=== PATIENT | female | born 1990 | race Hispanic/Latino ===

== ENCOUNTER 2019-03-23 11:46 | Emergency (ER) | payer BC, OTHER ==
[2019-03-23] MEDS ORDERED: ACETAMINOPHEN EXTRA STRENGTH 500 MG TABLET ONE (12:11)
[2019-03-23] MEDS ORDERED: CLINDAMYCIN HCL 150 MG CAP ONE (12:12)
== END 2019-03-23 13:11 | disposition home or self-care (01) ==
LOC: EDH 11:46
DX: L02.413 Cutaneous abscess of right upper limb (principal); L03.113 Cellulitis of right upper limb; Z72.0 Tobacco use
CPT/HCPCS: 10060

== ENCOUNTER 2024-02-17 19:43 | Emergency (ER) | payer OTHER ==
[~2024-02-17] VITALS: Ht 165.1 cm; Wt 108.9 kg
[2024-02-17] MEDS: KETOROLAC 15MG/ML VIAL (15MG/ML) IV STA (20:57)
[2024-02-17] MEDS: MORPHINE 2 MG SYG IVP STA (20:57)
[2024-02-17] MEDS: ONDANSETRON 4MG INJ IVP STA (20:57)
[2024-02-17] MEDS: 0.9%NACL 1000ML 1,000 ML IV STA (20:57)
[2024-02-17 20:58] VITALS: BP 100/89; PULSE 80; RESP 16; O2SAT 98
[2024-02-17 21:15] LABS: APPEARANCE,URINE CLOUDY (CLEAR); BILIRUBIN,URINE NEGATIVE (NEGATIVE); COLOR,URINE LIGHT-YELLOW (YELLOW); GLUCOSE, URINE (UA) NEGATIVE (NEGATIVE); KETONES,URINE NEGATIVE (NEGATIVE); LEUKOCYTE ESTERASE ,URINE 25 Leu/uL (NEGATIVE); NITRATE,URINE NEGATIVE (NEGATIVE); OCCULT BLOOD,URINE LARGE (NEGATIVE); PROTEIN,URINE 30 mg/dL (NEGATIVE); UROBILINOGEN,URINE 0.2 mg/dL (0.2-1.0)
[2024-02-17 21:22] LABS: ADD UA MICROSCOPIC YES
[2024-02-17 21:25] LABS: BACTERIA,URINE RARE /HPF (None Seen); SQUAMOUS EPITHELIAL CELL,UR MANY /HPF (0-2)
[2024-02-17 21:46] LABS: BASOPHILS # (AUTO) 0.04 K/uL (0.00-0.20); BASOPHILS % (AUTO) 0.4 % (0.0-5.0); EOSINOPHILS # (AUTO) 0.31 K/uL (0.00-0.70); EOSINOPHILS % (AUTO) 3.3 % (0.0-8.0); HEMATOCRIT 39.3 % (36-48); IMMATURE GRANULOCYTE ABSOLUTE 0.02 K/uL (0-1); LYMPHOCYTES # (AUTO) 2.6 K/uL (1.0-4.8); LYMPHOCYTES % (AUTO) 27.7 % (21.0-51.0); MEAN CORPUSCULAR HEMOGLOBIN 28.3 pg (27.0-33.0); MEAN CORPUSCULAR HGB CONC 34.1 g/dL (32.0-36.0); MEAN CORPUSCULAR VOLUME 83.1 fL (79-99); MONOCYTES # (AUTO) 0.7 K/uL (0.1-1.0); MONOCYTES % (AUTO) 7.7 % (3.0-13.0); NEUTROPHILS # (AUTO) 5.7 K/uL (1.8-7.7); NEUTROPHILS % (AUTO) 60.7 % (40.0-77.0); PLATELET COUNT (AUTO) 316 K/uL (130-400); RED BLOOD CELL COUNT(AUTO) 4.73 MIL/uL (4.00-5.50); WHITE BLOOD COUNT (AUTO) 9.4 K/uL (4.8-10.8)
[2024-02-17 21:57] LABS: CREATININE 0.7 mg/dL (0.5-1.0); POTASSIUM 3.6 mmol/L (3.5-5.1)
[2024-02-17] MEDS: METHOCARBAMOL 500 MG TABLET PO STA (22:38)
[2024-02-17] MEDS ORDERED: KETO10TA2 PO (23:21)
== END 2024-02-17 23:43 | disposition home or self-care (01) ==
LOC: EDH 19:43
DX: M54.50 Low back pain, unspecified (principal); F41.9 Anxiety disorder, unspecified
CPT/HCPCS: 99285; 74176; 96374; 96375; 80048; 85025; 81001; 36415; J2270; J7030; J2405; J1885